=== PATIENT | female | born 1995 | race Caucasian/White ===

== ENCOUNTER 2024-08-26 01:31 | Day surgery (SDC) | payer BC, SELFPAY ==
[2024-08-21 14:37] VITALS: BMI 31.1
--- NOTE | 2024-08-21 14:41 | PC.NURSE ---
Report to the Outpatient Waiting Room, entrance under the green pavilion located off [facility], at time __0600_ on date 08/26/24_. Planned Procedure Time: _07_.? Time changes happen often and if your time is changed the preop area will call you the afternoon before. - You and your visitor will be asked to self-screen and do not enter if you have any COVID symptoms. Please call surgeon if you need to reschedule. - A mask is optional within the hospital at this time. Patients may have clear liquids (water, carbonated beverages, clear teas, apple juice) until 3 hours prior to surgery with a maximum of 20 ounces. - No food from midnight until time of surgery and no smoking, or chewing tobacco (or any form of nicotine). No chewing gum, candy or mints. - Infants may have breast milk until 4 hours before surgery, infant formula 6 hours prior to surgery. - Children will be allowed to drink immediately following surgery.? If applicable, please bring a bottle or sippy cup to assist with drinking. Juice, water, soda, and popsicles are readily available.? For infants on formula, please bring formula the day of surgery.? Pacifiers are allowed. Take only the following medications with a SIP of water on the morning of surgery: ____BUPROPION DO NOT STOP ANY OF YOUR OTHER PRESCRIPTION MEDICATIONS PRIOR TO SURGERY EXCEPT THE FOLLOWING Hold all vitamins and supplements for 3 days per anesthesiologist. Medications to discontinue per physician Date to take last dose Please no make-up, nail greenlandic, hairspray, perfume, deodorant, or body powder the day of surgery.? No jewelry (including any body piercings) or valuables the day of surgery, leave them at home.? Please take a shower or bath the night before, or the morning of, surgery with an antibacterial soap.? Wear comfortable, loose fitting clothing.? Children are encouraged to wear pajamas. - Jewelry must be removed prior to entering the operating room.? Rings and piercings that are not removed may be cut off. - The hospital will not accept responsibility for valuables.? - Please leave all valuables, including medications, at home the day of surgery. If you are going home after surgery, a licensed otr tanker truck driver must drive you home.? - NO public transportation without another adult if you receive anesthesia. - We recommend that an adult stay with you for 24 hours following discharge. - We also recommend that you do not drive, make important decision, drink alcoholic beverages, or take any drugs that were not prescribed by your health care provider for at least 24 hours after your discharge time. For Pediatric surgeries, we recommend two adults accompany the child home. Follow any additional instructions given to you from your surgeon. Telephone instructions given to _PATIENT __and asked if any additional questions and then verbalized understanding. Patient advised to call surgeon office or pre surgery nurse liaison [phone] if any additional questions.
[2024-08-26] VITALS (8 sets, daily range): BP systolic 96–133; BP diastolic 57–81; PULSE 60–90; RESP 11–21; TEMP 36.6–36.8; O2SAT 92–99
--- OUTSIDE RECORDS SUMMARY | 2024-08-26 01:38 | XMS_ITS | Encounter Summary ---
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
--- OUTSIDE RECORDS SUMMARY | 2024-08-26 01:38 | XMS_ITS | Clinical Summary ---
Author Organization [facility] Address [facility] [place] [address] Care Team Providers Care Label Rewinder Name Role Phone Alonso Peña MD Primary Care Provider [phone] Allergies Active Allergy Reactions Criticality Noted Date Comments Ropinirole Nausea Only,Other (s ee comment) Medium 08/03/2018 Pt states that she had every side effect that was listed on the bottle Medications vitamin 27-1 MG Tab tablet Take 1 tablet by mouth daily. Active HYDROcodone-acet aminophen 5-325 MG tabletIndication s:Acute Pain < 7 Day Supply Take 1 tablet by mouth every 6 (six) hours as needed for Pain. Indications : Acute Pain < 7 Day Supply 28 tablet 10/15/2019 Active Active Problems Problem Noted Date Diagnosed Date Vaginal delivery ([facility]) 08/04/2018 Resolved Problems Problem Noted Date Diagnosed Date Resolved Date ([facility]) 08/03/2018 08/06/19 19 Immunizations Immunization Administration Dates Next Due MMR (MMRII) 08/07/2018 Family History Medical History Relation Comments Asthma Brother degenerative disk disease Maternal Grandmother Relation Status Comments Brother Maternal Grandmother Social History Tobacco Use Types Packs/Day Years Used Date Smoking Tobacco: Former Cigarettes Q uit: 08/29/2016 Smokeless Tobacco: Never Alcohol Use Standard Drinks/Week Comments No 0 (1 standard drink = 0.6 oz pur e alcohol) AUDIT-C Answer Date Recorded Frequency of Alcohol Consumption Never 08/03/2018 Average Number of Drinks Not on file 019 Frequency of Binge Drinking Not on file 07/13 Comments No Sex and Gender Information Value Date Recorded Sex Assigned at Female 03/06/2024 12:26 PM ENTERER Legal Sex Female 5:58 PM ENTERER Gender Identity Not on file Sexual Orientation Not on file Last Filed Vital Signs Vital Sign Reading Time Taken Comments Blood Pressure 107/66 10/16/2019 12:18 AM CDT Pulse 66 10/16/2019 12:18 AM CDT Temperature 36.1 C (97 F) 10/16/2019 12:18 AM CDT Respiratory Rate 18 10/16/2019 12:18 AM CDT Oxygen Saturation 100% 10/15/2019 11:30 PM CDT Inhaled Oxygen Concentration - - Weight 84.1 kg (185 lb 6.5 oz) 10/15/2019 6:50 P M CDT Height 167.6 cm (5' 6) 10/15/2019 6:50 PM CDT Body Mass Index 29.93 10/15/2019 6:50 PM CDT Plan of Treatment Health Maintenance Due Date Last Done Comments Cervical Cancer Screening Pa p Smear (Age 30 to 64) Every 3 Years 1994 Annual Physical 1997 Hepatitis C 2012 DTaP, Tdap and Td Vaccines ( 2 - Tdap) 2013 09/27/1999, 1994 Hepatitis B Vaccines (1 of 3 - 19+ 3-dose series) 2013 COVID-19 Vaccine (2023-2 5 season) 2023 Cervical Cancer Screening Pa p with HPV Testing (Age 30 to 64) Every 5 Years 2024 Cervical Cancer Screening wi th HPV 2024 HPV Vaccines Aged Out No longer eligi ble based on patient's age to complete this topic Meningococcal B Vaccine Aged Out No l onger eligible based on patient's age to complete this topic Meningococcal Vaccine Aged Out No vipul alva eligible based on patient's age to complete this topic Pneumococcal Vaccine: Pediatrics (0 to 5 Years) and At-Risk Patients (6 to 49 Years) Aged Out No longer eligible b ased on patient's age to complete this topic RSV Immunizations Under 20 Months Aged Out No longer eligible b ased on patient's age to complete this topic Insurance [facility] Care Teams Label Rewinder Relationship Specialty Start Date End Date Alonso Peña MD [address] [address] PCP - General FAMILY PRACTICE 08/03/18
[2024-08-26] MEDS: KETOROLAC 15 MG/ML VIAL (*BKC) IV PUSH (06:40)
[2024-08-26] MEDS: ACETAMINOPHEN 500 MG TABLET 1000 MG PO (06:40)
--- NOTE | 2024-08-26 06:57 | WPDANESEPPF ---
Anes - Initial Pre Proc Eval Procedure: Operation Date: 08/26/24 07:30 Proposed Procedures p Laparoscopic Bilateral Salpingectomy - Rowdy Santana MD Date/Time: 08/26/24 06:57 Surgeon: Rowdy Santana MD Pre Op Diagnosis: Perm sterilization Patient Data Age: 29 Gender: F Height: 1.65 m Weight: 92.4 kg Last Vital Signs Temp 97.8 F 08/26/24 06:41 Pulse 74 08/26/24 06:41 Resp 16 08/26/24 06:41 BP 118/67 08/26/24 06:41 Pulse Ox 98 08/26/24 06:41 O2 Del Method Room Air 08/26/24 06:41 Allergies Allergy/AdvReac Type Severity Reaction Status Date / Time No Known Allergies Allergy Unverified 08/26/24 06:40 Home Medications ?Medication ?Instructions ?Recorded ?Confirmed ?Type bupropion HCl 150 mg 24 hr tablet, 150 mg PO DAILY 08/21/24 08/21/24 History extended release Patient hx anesthesia problems: post op nausea/vomiting Family hx anesthesia problems: none Results Review: All pre-operative results and documents have been reviewed as part of the pre-operative evaluation. [facility] Surgical History Surgical History Hx of appendectomy Family History Family History Mother Cancer Grandparent Cancer Social History Social History Smoking status: Never smoker Alcohol intake: former Substance use: never Substance use type: does not use Anes - Eval Final PreProcedure Day of Procedure 08/26/24 06:57 Patient weight: obese Lungs: normal air movement Airway: Mallampati scale class II Neurological: alert and oriented Last oral intake: >/= 8 hours ASA classification: II Emergent: no Anesthetic plan: proceed Anesthesia type and monitoring: general ETT and standard monitoring Results Review: All pre-operative results and documents have been reviewed as part of the pre-operative evaluation. BMI 33, occ smoker, difficult to quantitate, pt did smoke at 2 am today. Informed Consent: The patient's anesthetic plan and its attendant risks and benefits were discussed with the patient/family/POA. Questions were solicited and answers provided to the satisfaction of the patient/family/POA.
[2024-08-26] MEDS: LACTATED RINGERS 1,000 ML 30 ML IV CONT ×2 (07:00→08:22)
[2024-08-26] MEDS: SCOPOLAMINE 1 MG PATCH 1 PATCH TRANSDERM (07:01)
--- NOTE | 2024-08-26 07:23 | WPDHPUPDATE1 ---
History and Physical Update Update Date/Time: 08/26/24 07:23 History and Physical has been reviewed, including an updated exam of the patient. There are NO changes in the patient's condition. Risks, benefits, and alternatives have been discussed and questions answered. Patient agrees to proceed with procedure.
--- NOTE | 2024-08-26 08:00 | S_PTH ---
PATIENT: Chata Chapin LOC: [facility] U#:[id number] AGE/SX: 29/F ROOM: RE08/26/[address]: Rowdy Santana MD : 1995 BED: DIS: 08/26/2024 SPEC #: [id number] RECD: 08/26/24 11:09 STATUS: NATHALY REQ #: [id number] ANGELITA: 08/26/24 08:[address]: Rowdy Santana DEPT: [facility] Surgical RECD BY: Charlotte Mccall ENTERED: 08/26/24 11:10 SP TYPE: Surgical OTHR DR: Alonso Peña M.D. Tissues: A - Fallopian Tube Bilateral Procedures: Gross and Microscopic Level 2 Hematoxylin and Eosin Stain
[2024-08-26] MEDS: fentaNYL CITRATE INJ (*CRX) 100 MCG/2 ML VIAL 25 MCG IV PUSH ×6 (08:38→09:23)
--- NOTE | 2024-08-26 08:47 | W.PM.PROC2 ---
Procedure Note - Detailed Date of Procedure 08/26/24 Pre-op Diagnosis Request permanent sterilization Post-op Diagnosis Same Procedure Performed Laparoscopic bilateral salpingectomy Surgeon Rowdy Santana MD Anesthesia General Indications Undesired fertility, request permanent sterilization Findings Normal uterus and fallopian tubes and ovaries bilaterally Description of Procedure After informed consent was obtained patient was taken to the operating room and general endotracheal anesthesia was administered. She was placed in low lithotomy need prep prepped sterile fashion. Attention was turned to the vagina speculum inserted single-tooth tenaculum placed on anterior lip of the cervix. [place] uterine manipulator placed into the cervical canal. Straight cath inserted, 300cc urine yellow. The speculum was removed. Attention was then turned to the abdomen. A vertical incision was made at the umbilicus and a Veress needle was inserted into the abdomen confirmation into the abdomen obtained with free flow of fluid and normal peritoneal pressures. A pneumoperitoneum of 15 mm per mercury was obtained. The 5 mm port was inserted under laparoscopic visualization. Patient was placed in Trendelenburg position. Attention was turned to the left side of the abdomen and a 5 mm port was inserted under laparoscopic visualization. The pelvic organs were visualized. Attention was turned to the right side of the abdomen and another 5 mm port was inserted under laparoscopic visualization. Using the LigaSure the right fallopian tube was excised to near the entrance to the uterus. This was removed through the port. Attention was then turned to the left fallopian tube which was grabbed at the distal end and cauterized from the mesial salpinx to within a cm of the entrance to the entrance to the uterus. The fallopian tube was removed through the 5 mm port. Hemostasis was noted at both sites. Patient was taken out of Trendelenburg position the pneumoperitoneum was released and the skin incisions were closed in a subcuticular fashion with 4 O Vicryl. Estimated Blood Loss 5 Drains No Packing No Pathology Yes (right and left fallopian tubes) Complications No immediate complications Condition Stable Disposition Same day [facility] Billing Surgery - Charge Forward: Surgery Billing
[2024-08-26] MEDS: oxyCODONE HCL (*CRX) 5 MG TAB IR PO (09:37)
== END 2024-08-26 10:10 | disposition home or self-care (01) ==
PROVIDERS: PCP Family Medicine; Visit Provider Obstetrics & Gynecology
PROC: (CPT 49320; principal; 2024-08-26 07:30)
DX: Z30.2 Encounter for sterilization (principal); G89.18 Other acute postprocedural pain; E66.9 Obesity, unspecified; Z68.33 Body mass index [BMI] 33.0-33.9, adult; F17.210 Nicotine dependence, cigarettes, uncomplicated; Z98.890 Other specified postprocedural states; Z80.9 Family history of malignant neoplasm, unspecified
CPT/HCPCS: 58661; 88302; A9270; J1100; J1885; J2003; J2250; J2405; J2704; J3010; J7120